=== PATIENT | male | born 1980 | race Caucasian/White ===

== ENCOUNTER 2018-07-20 10:29 | Outpatient (CLI) | payer BC ==
--- NOTE | 2018-07-20 12:49 | MRI ---
MRI BRAIN WITH AND WITHOUT CONTRAST: 07/20/2018 HISTORY: Dizziness, nausea, and fatigue. COMPARISON: None. TECHNIQUE: Multiplanar, multisequence MR imaging of the brain is obtained with and without contrast. FINDINGS: The diffusion-weighted imaging demonstrates no evidence for acute infarction. The axial gradient echo imaging demonstrates no evidence for intracranial hemorrhage. There is polypoid mucosal thickening within the bilateral maxillary sinuses, right greater than left. Arterial flow voids at the axial level of the skull base appear unremarkable on the T2 weighted imagi ng. There is no midline shift or mass effect. No ventricular enlargement is seen. The post contrast imaging demonstrates no abnormal enhancement within the brain parenchymal. The orbits and globes demonstrate a normal pre and post contrast appearance. No midline shift, mass effect, or ventricular enlargement. IMPRESSION: No acute findings. POS: DENIS
== END 2018-07-20 10:30 | disposition home or self-care (01) ==
LOC: BICMRI 10:29
PROVIDERS: ATTEND Family Medicine
DX: R42 Dizziness and giddiness (principal); R53.83 Other fatigue
CPT/HCPCS: 70553